=== PATIENT | female | born 1945 | race Caucasian/White ===

== ENCOUNTER 2024-02-13 08:58 | Emergency (ER) | payer MEDICARE, BC ==
[2024-02-13] MEDS ORDERED: DEXAMETHASONE SOD PHOSPHATE 10 MG/ML 1 ML VIAL ONE (09:45)
[2024-02-13] MEDS ORDERED: KETOROLAC 15 MG/ML 1 ML VIAL ONE (09:45)
[2024-02-13] MEDS ORDERED: LIDOCAINE 4% PATCH TOPICAL ONE (09:45)
[2024-02-13] MEDS ORDERED: MORPHINE SULFATE 4 MG/ML SYRINGE ONE (09:45)
[2024-02-13] MEDS ORDERED: ORPHENADRINE 30 MG/ML 2 ML VIAL ONE (09:45)
== END 2024-02-13 12:00 | disposition home or self-care (01) ==
LOC: EC 08:58
CPT/HCPCS: 96374; 96375; 99283

== ENCOUNTER 2024-07-02 16:39 | Observation (INO) | payer MEDICARE, BC ==
[2024-07-02 16:51] VITALS: TEMP 98.4
--- NOTE | 2024-07-02 17:26 | ED ---
General Adult HPI - General Chief complaint: Arrhythmia/Palpitations Stated complaint: afib Time Seen by Provider: 07/02/24 16:56 Source: patient, RN/MD Mode of arrival: ambulatory Limitations: no limitations - History of Present Illness Initial comments: Patient is a pleasant 79-year-old female presenting today for atrial fibrillation noted at urgent care. Patient had presented there for cough x approx 1 week.. She was noted to be in A-fib and RVR on arrival there. Cough is productive of whitish sputum. She denies fevers, chills, lightheadednes, dizziness, palpitations, chest pain, LE swelling, hemoptysis, nausea, vomiting, abdominal pain, diarrhea, hematochezia or melena, dysuria, or urinary frequency. Was once told by her doctor that she had an irreguclar heart beat but has never been diagnosed w/ a fib. Is not on blood thinners. No hx ACS. Is a nonsmoker. - Related Data Home Medications Medication Instructions Recorded Confirmed Benazepril/Hydrochlorothiazide 1 tab PO DAILY 07/02/24 07/02/24 [Benazepril-Hctz 20-12.5 mg Tab] Metoprolol Succinate (ER) [Toprol 50 mg PO DAILY 07/02/24 07/02/24 Xl] Allergies Allergy/AdvReac Type Severity Reaction Status Date / Time Penicillins Allergy Unknown Verified 07/02/24 18:43 Childhood Review of Systems ROS Statement: Those systems with pertinent positive or pertinent negative responses have been documented in the HPI. ROS Other: All systems not noted in ROS Statement are negative. Past Medical History Past Medical History: Hypertension Smoking Status: Never smoker Past Alcohol Use History: None Reported Past Drug Use History: None Reported General Exam - General Exam Comments Initial Comments: PE: CONSTITUTIONAL: No apparent distress, well appearing SKIN: Warm, dry, no jaundice, hives or petechiae EYES: Pupils are equally round, extraocular movements intact without nystagmus, clear conjunctiva, non-icteric sclera HENT: Normocephalic, atraumatic, moist mucus membranes, oropharynx clear without exudates NECK: , Full range of motion, normal appearance PULMONARY: Wheezes and rhonchi in the bilateral mid and lower lung blanco, no rales, normal excursion, no accessory muscle use no stridor r CARDIOVASCULAR: Irregularly irregular rhythm with tachycardia, exam limited by patient's heart rate, normal S1-S2 without murmurs, no lower extremity edema, 2+ radial pulse palpated GASTROINTESTINAL: Soft, active bowel sounds throughout, non-tender, non- distended, no palpable masses, no rebound or guarding. No hepatosplenomegaly GENITOURINARY: MUSCULOSKELETAL: Extremities have no gross deformity, no edema, redness, or swelling. No calf swelling NEUROLOGIC:_a/o x 3, GCS 15, normal mentation and speech. Moves all extremities x 4 without motor or sensory deficit PSYCHIATRIC:_normal mood and affect, thought process is clear and linear Limitations: no limitations Course Vital Signs 07/02/24 07/02/24 07/02/24 16:47 18:04 19:35 Temperature 98.4 F Pulse Rate 105 H 122 H 117 H Respiratory 20 20 16 Rate Blood Pressure 160/89 137/115 122/92 O2 Sat by Pulse 98 97 96 Oximetry 07/02/24 07/02/24 07/02/24 19:58 20:17 20:25 Temperature Pulse Rate 121 H 112 H 116 H Respiratory 18 Rate Blood Pressure 159/99 O2 Sat by Pulse 97 Oximetry 07/02/24 07/02/24 21:00 21:58 Temperature Pulse Rate 128 H 116 H Respiratory 18 18 Rate Blood Pressure 149/106 155/114 O2 Sat by Pulse 98 96 Oximetry EKG Findings - EKG Comments: EKG Findings:: Atrial fibrillation with RVR, rate 132 bpm, QRS complex duration 79 ms, QT/QTc 94/372, normal axis, T wave enlargement in lead to [address] elevations or reciprocal depressions Medical Decision Making - Medical Decision Making Was pt. sent in by a medical professional or institution (, PA, FORECLOSURE HOME INSPECTOR, urgent care, hospital, or halfway...) When possible be specific @ -Sent in by [facility] Did you speak to anyone other than the patient for history (EMS, parent, family, police, friend...)? What history was obtained from this source @ -No Did you review nursing and triage notes (agree or disagree)? Why? @ -I reviewed and agree with nursing and triage notes Were old charts reviewed (outside hosp., previous admission, EMS record, old EKG, old radiological studies, urgent care reports/EKG's, halfway records)? Report findings @Medical records reviewed, reviewed EKG sent in with patient from local urgent care which showed patient was in A-fib with RVR Differential Diagnosis (chest pain, altered mental status, abdominal pain women, abdominal pain men, vaginal bleeding, weakness, fever, dyspnea, syncope, heada gail, dizziness, GI bleed, back pain, seizure, CVA, palpatations, mental health, musculoskeletal)? Differential diagnosis remains broad however top considerations include Ventricular arrhythmias, atrial arrhythmias, myocardial infarction, anemia, thyrotoxicosis, electrolyte imbalance, hypokalemia, pulmonary disease, drugs, alcohol, anxiety, stress.... This is not meant to be an all-inclusive list. EKG interpreted by me (3pts min.). @ -As above X-rays interpreted by me (1pt min.). @ -No cardiomegaly consolidations or pleural effusions CT interpreted by me (1pt min.). @ -None done U/S interpreted by me (1pt. min.). @ -None done What testing was considered but not performed or refused? (CT, X-rays, U/S, labs)? Why? @ -None What meds were considered but not given or refused? Why? @ -None Did you discuss the management of the patient with other professionals (professionals i.e. , PA, FORECLOSURE HOME INSPECTOR, lab, RT, psych nurse, social organization professor, coke drawer hand, teacher, welfare officer, case coordinator)? Give summary @ -No Was smoking cessation discussed for >3mins.? @ -No Was critical care preformed (if so, how long)? @ -Yes, 45 minutes Were there social determinants of health that impacted care today? How? (Homele ssness, low income, unemployed, alcoholism, drug addiction, transportation, low edu. Level, literacy, decrease access to med. care, detention, rehab)? @ -No Was there de-escalation of care discussed even if they declined (Discuss DNR or withdrawal of care, Hospice)? @ -No What co-morbidities impacted this encounter? (DM, HTN, Smoking, COPD, CAD, Cancer, CVA, ARF, Chemo, Hep., AIDS, mental health diagnosis, sleep apnea, morbid obesity)? @ -None Was patient admitted / discharged? Hospital course, mention meds given and route, prescriptions, significant lab abnormalities, going to OR and other pertinent info. @ -Admission-this is a pleasant 79-year-old female presenting today after being found to be in A-fib with RVR at a local urgent care where she had presented for coughing. Patient well-appearing and in no acute distress on assessment. Does have rhonchi and wheezes in the bilateral mid and lower lung blanco, tachycardia and irregularly irregular rhythm on cardiac exam. Will start by controlling patient's heart rate with Cardizem, once rate is controlled will give DuoNeb and steroids, as these are likely to cause tachycardia as well. As it is unclear how long patient has been in A-fib for, heparin will be started as well. Patient agreeable with plan. Labs and imaging reviewed. Grossly within normal limits. Abnormal values not concerning for acute pathology related to presenting complaint. No focal consolidations on chest x-ray. Patient's pulmonary exam consistent with acute bronchitis. And reassessment after 20 mg Cardizem bolus rate is controlled between 80s and 110. DuoNeb and steroids provided which did cause patient become somewhat more tachycardic with heart rates 100-120. Cardizem gtt ongoing. Discussed with patient plan for admission. Case presented to Dr. Chand, who kindly accepted patient for admission. Undiagnosed new problem with uncertain prognosis? @ -No Drug Therapy requiring intensive monitoring for toxicity (Heparin, Nitro, Insulin, Cardizem)? @ -Cardizem, heparin Were any procedures done? @ -No Diagnosis/symptom? @A-fib with RVR, acute bronchitis Acute, or Chronic, or Acute on Chronic? Acute Uncomplicated (without systemic symptoms) or Complicated (systemic symptoms)? Complicated Side effects of treatment? @ -No Exacerbation, Progression, or Severe Exacerbation? @ -No Poses a threat to life or bodily function? How? (Chest pain, USA, ID, pneumonia, PE, COPD, DKA, ARF, appy, cholecystitis, CVA, Diverticulitis, Homicidal, Suicidal, threat to staff... and all critical care pts) Yes - Lab Data Result diagrams: 07/02/24 17:38 07/02/24 17:38 Lab Results 07/02/24 07/02/24 07/02/24 Range/Units 17:38 17:38 17:38 WBC 5.2 (3.8-10.6) k/uL RBC 4.58 (3.80-5.40) m/uL Hgb 14.0 (11.4-16.0) gm/dL Hct 41.3 (34.0-46.0) % MCV 90.1 (80.0-100.0) fL MCH 30.6 (25.0-35.0) pg MCHC 34.0 (31.0-37.0) g/dL RDW 13.1 (11.5-15.5) % Plt Count 236 (150-450) k/uL MPV 7.2 Neutrophils % (Manual) 36 % Lymphocytes % (Manual) 57 % Monocytes % (Manual) 5 % Eosinophils % (Manual) 2 % Neutrophils # (Manual) 1.87 (1.3-7.7) k/uL Lymphocytes # (Manual) 2.96 (1.0-4.8) k/uL Monocytes # (Manual) 0.26 (0-1.0) k/uL Eosinophils # (Manual) 0.10 (0-0.7) k/uL Nucleated RBCs 0 (0-0) /100 WBC Manual Slide Review Performed RBC Morphology Normal PT 10.1 (10.0-12.5) sec INR 0.9 (<1.2) APTT 22.2 (22.0-30.0) sec Sodium 139 (137-145) mmol/L Potassium 3.7 (3.5-5.1) mmol/L Chloride 106 (98-107) mmol/L Carbon Dioxide 28 (22-30) mmol/L Anion Gap 5 mmol/L BUN 17 (7-17) mg/dL Creatinine 0.83 (0.52-1.04) mg/dL Est GFR (CKD-EPI)AfAm 79 (>60 ml/min/1.73 sqM) Est GFR (CKD-EPI)NonAf 68 (>60 ml/min/1.73 sqM) Glucose 113 H (74-99) mg/dL Calcium 9.0 (8.4-10.2) mg/dL Magnesium 1.9 (1.6-2.3) mg/dL Total Bilirubin 0.1 L (0.2-1.3) mg/dL AST 21 (14-36) U/L ALT 13 (4-34) U/L Alkaline Phosphatase 78 (38-126) U/L Troponin I (0.000-0.034) ng/mL Total Protein 6.3 (6.3-8.2) g/dL Albumin 3.9 (3.5-5.0) g/dL TSH 1.580 (0.465-4.680) mIU/L 07/02/24 Range/Units 17:38 WBC (3.8-10.6) k/uL RBC (3.80-5.40) m/uL Hgb (11.4-16.0) gm/dL Hct (34.0-46.0) % MCV (80.0-100.0) fL MCH (25.0-35.0) pg MCHC (31.0-37.0) g/dL RDW (11.5-15.5) % Plt Count (150-450) k/uL MPV Neutrophils % (Manual) % Lymphocytes % (Manual) % Monocytes % (Manual) % Eosinophils % (Manual) % Neutrophils # (Manual) (1.3-7.7) k/uL Lymphocytes # (Manual) (1.0-4.8) k/uL Monocytes # (Manual) (0-1.0) k/uL Eosinophils # (Manual) (0-0.7) k/uL Nucleated RBCs (0-0) /100 WBC Manual Slide Review RBC Morphology PT (10.0-12.5) sec INR (<1.2) APTT (22.0-30.0) sec Sodium (137-145) mmol/L Potassium (3.5-5.1) mmol/L Chloride (98-107) mmol/L Carbon Dioxide (22-30) mmol/L Anion Gap mmol/L BUN (7-17) mg/dL Creatinine (0.52-1.04) mg/dL Est GFR (CKD-EPI)AfAm (>60 ml/min/1.73 sqM) Est GFR (CKD-EPI)NonAf (>60 ml/min/1.73 sqM) Glucose (74-99) mg/dL Calcium (8.4-10.2) mg/dL Magnesium (1.6-2.3) mg/dL Total Bilirubin (0.2-1.3) mg/dL AST (14-36) U/L ALT (4-34) U/L Alkaline Phosphatase (38-126) U/L Troponin I <0.012 (0.000-0.034) ng/mL Total Protein (6.3-8.2) g/dL Albumin (3.5-5.0) g/dL TSH (0.465-4.680) mIU/L Disposition Clinical Impression: Atrial fibrillation with rapid ventricular response, Acute bronchitis Disposition: ADMITTED IP TO THIS HOSP Condition: Good
[2024-07-02] MEDS ORDERED: DILTIAZEM 125 MG in SODIUM CHLORIDE 0.9% 100 ML IV SCH (17:30)
[2024-07-02] MEDS: SODIUM CHLORIDE 0.9% 1,000 ML IV STA (18:05)
[2024-07-02 18:07] LABS: ALT 13 U/L (4-34); AST 21 U/L (14-36); African American GFR (CKD) 79 (>60 ml/min/1.73 sqM); Albumin 3.9 g/dL (3.5-5.0); Alkaline Phosphatase 78 U/L (38-126); Anion Gap 5 mmol/L; Blood Urea Nitrogen 17 mg/dL (7-17); Carbon Dioxide 28 mmol/L (22-30); Chloride 106 mmol/L (98-107); Glucose 113 mg/dL (74-99); Magnesium 1.9 mg/dL (1.6-2.3); Non-African American GFR(CKD) 68 (>60 ml/min/1.73 sqM); Potassium 3.7 mmol/L (3.5-5.1); Sodium 139 mmol/L (137-145); Total Bilirubin 0.1 mg/dL (0.2-1.3); Total Protein 6.3 g/dL (6.3-8.2)
[2024-07-02] MEDS: DILTIAZEM DRIP BOLUS FROM BAG 1 MG SOLN IV ONE (18:08)
[2024-07-02] MEDS: HEPARIN SODIUM 1,000 UN/ML (10ML VL) IV ONE (18:22)
[2024-07-02] MEDS: HEPARIN SOD,PORK IN 0.45% NACL 25,000 UNIT in 0.45% NACL 1 250ML.BAG IV SCH (18:22)
[2024-07-02 18:23] LABS: INR 0.9 (<1.2); Partial Thromboplastin Time 22.2 sec (22.0-30.0); Prothrombin Time 10.1 sec (10.0-12.5)
[2024-07-02] MEDS: DILTIAZEM 125 MG in SODIUM CHLORIDE 0.9% 100 ML IV SCH (18:26)
[2024-07-02 18:40] LABS: HCT 41.3 % (34.0-46.0); MCH 30.6 pg (25.0-35.0); MCV 90.1 fL (80.0-100.0); Mean Platelet Volume 7.2; Platelet Count 236 k/uL (150-450); RBC 4.58 m/uL (3.80-5.40); RDW 13.1 % (11.5-15.5); WBC 5.2 k/uL (3.8-10.6)
[2024-07-02 19:24] LABS: Lymphocytes # (M) 2.96 k/uL (1.0-4.8); Monocytes # (M) 0.26 k/uL (0-1.0); Neutrophils # (M) 1.87 k/uL (1.3-7.7); Neutrophils % (M) 36 %; Nucleated Red Blood Cells 0 /100 WBC (0-0); RBC Morphology Normal; Total Cells Counted 100
--- NOTE | 2024-07-02 19:27 | XR ---
EXAMINATION TYPE: XR chest 2V DATE OF EXAM: 07/02/2024 7:22 PM COMPARISON: None CLINICAL INDICATION: Female, 79 years old with history of dysrhythmia; PH TECHNIQUE: XR chest 2V Frontal and lateral views of the chest. FINDINGS: Lungs/Pleura: There is no evidence of pleural effusion, focal consolidation, or pneumothorax. Pulmonary vascularity: Unremarkable. Heart/mediastinum: Cardiomediastinal silhouette is unremarkable. Musculoskeletal: No acute osseous pathology. IMPRESSION: No acute cardiopulmonary disease/process. [facility], , 07/02/2024 7:24 PM
[2024-07-02] MEDS: predniSONE 20 MG TAB PO STA (20:01)
[2024-07-02] MEDS: IPRATROPIUM-ALBUTEROL 3 ML NEB INHALATION STA (20:17)
[2024-07-02] MEDS ORDERED: NALOXONE 0.4 MG/ML 1 ML VIAL IV PRN (22:23)
[2024-07-02] MEDS ORDERED: CALCIUM CARBONATE 500 MG CHEWABLE PO PRN (22:23)
[2024-07-02] MEDS ORDERED: ACETAMINOPHEN TAB 325 MG TAB PO PRN (22:23)
[2024-07-02] MEDS ORDERED: MAG HYDROX/AL HYDROX/SIMETH 30 ML CUP PO PRN (22:23)
[2024-07-02] MEDS ORDERED: traMADol 50 MG TAB PO PRN (22:23)
[2024-07-03 00:25] LABS: Prothrombin Time 11.3 sec (10.0-12.5)
--- NOTE | 2024-07-03 01:37 | P.HPIM ---
History of Present Illness H&P Date: 07/02/24 Chief Complaint: Arrhythmia/palpitations Patient is a 79-year-old female with hypertension presented to the emergency department with arrhythmia/palpitations. Patient has been having cough for the past week and went to urgent care earlier today. She was found to be in atrial fibrillation at the clinic and was sent over to the ED for further evaluation. Patient denies any prior history of atrial fibrillation. No heart conditions or stents placed in the heart in the past. No history of diabetes or COPD. Has been adherent to her home medications. Does report that her cough is better tonight. Denies other complaints at this time. Denies chest pain, shortness of breath, lightheadedness, dizziness, loss of consciousness/passing out, fever, chills, sore throat, runny nose, nausea/vomiting, hematochezia or melena. Patient denies recent travel history, denies any sick contacts. ED documentation reviewed. In the ED patient was treated with prednisone 40 mg p.o. x 1, DuoNeb 3 mL x 1, diltiazem 125 mg IV, heparin IV x 1, a bolus of normal saline, Cardizem drip bolus IV x 1 Vitals on admission temperature 98.4, heart rate 121, respiratory rate 18, blood pressure 159/99, O2 sat 97% on room air EKG independently interpreted as atrial fibrillation with rapid ventricular response with ventricular rate of 132 bpm, QTc interval 372 ms, low QRS voltage in extremity leads possible anterior myocardial infarction, probably old CXR shows no acute cardiopulmonary disease/process Labs on admission show WBC 5.2, hemoglobin 14, hematocrit 41.3, platelet 236, PT 10.1, PTT 22.2, INR 0.9, sodium 139, potassium 3.7, chloride 106, carbon dioxide 28, BUN 17, creatinine 0.83, glucose 113, bilirubin 0.1, troponin less than 0.012, TSH 1.58 Review of systems: Pertinent positives and negatives as discussed in HPI, a complete review of systems was performed and all other systems are negative. PMH: Hypertension PSH: None reported FMH: No pertinent family history Allergies: Penicillins Social history: Tobacco: Never smoker Alcohol: None reported Recreational drugs: None reported Travel: No travel history Sick contacts: Recently had pneumonia about a month ago Physical examination: Vital signs reviewed General: nontoxic, no distress, appears at stated age Derm: warm, dry, intact Head: atraumatic, normocephalic, symmetric Eyes: EOMI, anicteric sclera Mouth: no lip lesion, mucus membranes moist Cardiovascular: S1 S2 reg, no murmur Lungs: CTA bilateral, no rhonchi, no rales, no accessory muscle use Abdominal: soft, non-tender to palpation Extremities: No cyanosis, clubbing, or pedal edema. Neuro: Alert, Oriented to time, person, place, Gross neurological examination did not reveal any focal deficits. Cranial nerves II to XII grossly intact. Bilateral upper and lower extremity muscle strength intact 5 out of 5 and sensation intact. Psych: well appearing, appropriate affect Assessment/Plan: 79-year-old female with hypertension presented to the emergency department with arrhythmia/palpitations. [facility] Active: #. New onset atrial fibrillation with rapid ventricular response Heart rate 121 EKG showed atrial fibrillation with rapid ventricular response with ventricular rate of 132 bpm, QTc interval 372 ms, low QRS voltage in extremity leads possible anterior myocardial infarction, probably old Continue cardiac monitoring Restart home metoprolol succinate Obtain D-dimer, if D-dimer is elevated consider CT angiography of chest Troponin has been less than 0.012 x 2 TSH 1.58 unremarkable Consult cardiology echocardiogram CHADSvasc = 4 will require anticoagulation await echo results #. Hyperglycemia Glucose 113 Accu-Cheks every 6 hours Chronic: #. Hypertension Restart home metoprolol succinate 50 mg daily Restart home benazepril/hydrochlorothiazide 20-12.5 mg 1 tablet daily F: No restrictions E: As needed N: Regular diet A: Ambulatory DVT prophylaxis: Lovenox 40 mg subcu daily The patient is admitted with an anticipated less than 2 midnight stay for evaluation of atrial fibrillation CODE STATUS: Full code Discussed with: Patient Anticipated discharge place: Home I have seen and evaluated the patient today. I Discussed the case with the resident and agree with the resident's findings I edited the assessment and plan as necessary as documented in the resident's note. Past Medical History Past Medical History: Hypertension Smoking Status: Never smoker Past Alcohol Use History: None Reported Past Drug Use History: None Reported Medications and Allergies Home Medications Medication Instructions Recorded Confirmed Type Benazepril/Hydrochlorothiazide 1 tab PO DAILY 07/02/24 07/02/24 History [Benazepril-Hctz 20-12.5 mg Tab] Metoprolol Succinate (ER) [Toprol 50 mg PO DAILY 07/02/24 07/02/24 History Xl] Allergies Allergy/AdvReac Type Severity Reaction Status Date / Time Penicillins Allergy Unknown Verified 07/02/24 18:43 Childhood Physical Exam Vitals: Vital Signs Temp Pulse Resp BP Pulse Ox 07/02/24 19:58 121 H 18 159/99 97 07/02/24 19:35 117 H 16 122/92 96 07/02/24 18:04 122 H 20 137/115 97 07/02/24 16:47 98.4 F 105 H 20 160/89 98 Intake and Output 07/02/24 07/02/24 07/02/24 06:59 14:59 22:59 Other: Weight 90.718 kg Results CBC & Chem 7: 07/02/24 17:38 07/02/24 17:38 Labs: Abnormal Lab Results - Last 24 Hours (Table) 07/02/24 Range/Units 17:38 Glucose 113 H (74-99) mg/dL Total Bilirubin 0.1 L (0.2-1.3) mg/dL
[2024-07-03] MEDS: HEPARIN SODIUM 1,000 UN/ML (10ML VL) IV PRN (04:12)
[2024-07-03] MEDS: LISINOPRIL-HCTZ 20-12.5 MG 1 EACH TAB PO SCH (08:38)
[2024-07-03] MEDS: FAMOTIDINE 20 MG TAB PO SCH (08:38)
[2024-07-03] MEDS: METOPROLOL SUCCINATE (ER) 50 MG TAB.ER.24H PO SCH (08:39)
[2024-07-03 08:40] VITALS: RESP 20
[2024-07-03 08:46] LABS: Glucose,Whole Blood 106 mg/dL (70-110)
--- NOTE | 2024-07-03 11:50 | P.PN ---
Subjective Progress Note Date: 07/03/24 Hospital Course: A 79-year-old female with PMH of hypertension who presented to the ED with pal pitation, cough that has been going on for the past week. She was seen in the clinic and was found to be in A-fib that she does not have prior history of, patient was sent to the ER. Her car started getting better after admission. Patient was given breathing treatment, started on IV Cardizem, heparin drip, cardiology consulted. EKG showed A-fib with RVR. Patient converted to sinus, Cardizem drip was stopped, heparin drip stopped, patient was started on Eliquis 5 mg twice daily, continued on home Toprol-XL 50 daily, lisinopril hydrochlorothiazide. TTE pending. Pertinent Imaging: Chest x-ray from admission, no acute cardiopulmonary process Subjective: Patient was seen and examined in the ER, she is feeling better, no palpitations, chest pain, discomfort, denies shortness of breath, cough is significantly better today. Pertinent positives and negatives as discussed above, a complete review of systems was performed and all other systems are negative. Vitals Signs Reviewed. General: [nontoxic], [no distress], [appears at stated age] Derm: [warm], [dry] Head: [atraumatic], [normocephalic], [symmetric] Eyes: [EOMI], [no lid lag], [anicteric sclera] Mouth: [no lip lesion], [mucus membranes moist] Cardiovascular: [S1S2 reg], [no murmur] Lungs: [CTA bilateral], [no rhonchi, no rales] , [no accessory muscle use] Abdominal: [soft], [ nontender to palpation], [no guarding], [no appreciable organomegaly] Ext: [no gross muscle atrophy], [no edema], [no contractures] Neuro: [ CN II-XI grossly intact], [no focal neuro deficits] Psych: [Alert], [oriented], [appropriate affect] Data Reviewed Today: Pertinent Labs: BG is controlled Assessment and Plan: New onset A-fib with RVR, currently in sinus Hypertension -TTE pending -Continue home Toprol XL, lisinopril hydrochlorothiazide -Started on Eliquis -Cardizem and heparin drip stopped -Cardiology following -TSH WNL -Continue telemetry Cough RSV positive -Patient is not hypoxic -No interventions -Age-appropriate vaccination recommended DVT ppx: Eliquis Anticipated discharge place: home Anticipated discharge time: 07/04 Objective - Vital Signs Vital signs: Vital Signs Temp 98.4 F 07/02/24 16:47 Pulse 60 07/03/24 10:38 Resp 20 07/03/24 10:38 BP 115/88 07/03/24 10:38 Pulse Ox 96 07/03/24 10:38 FiO2 Intake & Output 07/02/24 07/03/24 07/03/24 18:59 06:59 18:59 Intake Total 199.332 69.25 Balance 199.332 69.25 Weight 90.718 kg Intake: Intake, IV Titration 199.332 69.25 Amount Diltiazem 125 mg In 101.499 69.25 Sodium Chloride 0.9% 100 ml @ 5 MG/HR 5 mls/hr IV .Q24H [facility] Rx#:[id number] Heparin Sod,Pork in 0.45% 97.833 NaCl 25,000 unit In 0.45 % NaCl 1 250ml.bag @ 11. 023 UNITS/KG/HR 10 mls/hr IV .Q24H [facility] Rx#: [id number] - Labs CBC & Chem 7: 07/02/24 17:38 07/02/24 17:38 Labs: Abnormal Lab Results - Last 24 Hours (Table) 07/02/24 07/03/24 07/03/24 Range/Units 17:38 00:57 02:14 APTT 35.8 H (22.0-30.0) sec D-Dimer (<0.60) mg/L FEU Glucose 113 H (74-99) mg/dL Total Bilirubin 0.1 L (0.2-1.3) mg/dL RSV (PCR) Detected A (Not Detectd) 07/03/24 07/03/24 Range/Units 07:45 07:45 APTT 61.1 H (22.0-30.0) sec D-Dimer 0.69 H (<0.60) mg/L FEU Glucose (74-99) mg/dL Total Bilirubin (0.2-1.3) mg/dL RSV (PCR) (Not Detectd)
[2024-07-03] MEDS: APIXABAN 5 MG TAB PO SCH (12:41)
--- NOTE | 2024-07-03 13:50 | P.CRDCN ---
History of Present Illness History of present illness: HISTORY OF PRESENT ILLNESS: This is a 79-year-old female with a past medical history significant for hypertension. 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 We have been asked to see the patient in consultation for afib. Patient examined at the bedside in the ER. Patient states she has been dealing with a cough recently for the past week. She has been taking Coricidin HBP on an outpatient basis. Patient had an EKG performed at the urgent care which revealed atrial fibrillation and she was sent to the emergency room for further evaluation. Patient was started on IV heparin and IV Cardizem. She has subsequently converted to sinus mechanism and is maintaining sinus mechanism at the time of examination. Patient denies any known history of atrial fibrillation. Patient denies any chest pain or pressure. She denies any shortness of breath. She denies any dizziness or ligh theadedness. Vital signs are stable. DIAGNOSTICS: - EKG reveals A-fib with RVR. Repeat EKG reveals sinus mechanism. - Chest xray negative for acute process - Laboratory data: WBC 5.2. Hemoglobin 14.0. Platelet count 236. Sodium 139. Potassium 3.7. BUN 17. Creatinine 0.83. Troponin negative x 3. TSH 1.580. - Current home cardiac medications include metoprolol succinate 50 mg daily and benazeprilhydrochlorothiazide 20-12.5 mg daily - No previous echocardiogram, stress test, or cardiac catheterization available in EMR for review REVIEW OF SYSTEMS: At the time of my exam: CONSTITUTIONAL: Denies fever or chills. HEENT: Denies blurred vision, vision changes, or eye pain. Denies hemoptysis CARDIOVASCULAR: Denies chest pain. Denies orthopnea. Denies PND. Denies palpitations RESPIRATORY: Denies shortness of breath. GASTROINTESTINAL: Denies abdominal pain. Denies nausea or vomiting. HEMATOLOGIC: Denies bleeding disorders. GENITOURINARY: Denies any blood in urine. SKIN: Denies pruitis. Denies rash. PHYSICAL EXAM: VITAL SIGNS: Reviewed. GENERAL: Well-developed in no acute distress. HEENT: Head is normocephalic. Pupils are equal, round. Sclerae anicteric. Mucous membranes of the mouth are moist. Neck supple. No JVD or thyromegaly LUNGS: Respirations even and unlabored. Lungs essentially clear to auscultation bilaterally. HEART: Regular rate and rhythm. S1 and S2 heard. ABDOMEN: Soft. Nondistended. Nontender. EXTREMITIES: Normal range of motion. No clubbing or cyanosis. Peripheral pulses intact. No lower extremity edema NEUROLOGIC: Awake and alert. Oriented x 3. ASSESSMENT: Acute RSV infection New onset paroxysmal atrial fibrillation with RVR, currently maintaining sinus mechanism Hypertension Obesity: BMI 36.6 PLAN: Discontinue IV heparin Begin Eliquis 5 mg twice a day Discontinue IV Cardizem Continue current dose of metoprolol succinate 50 mg daily Will plan for outpatient echocardiogram and stress test Patient may be discharged home today from a cardiac standpoint Patient to follow-up in the office with Dr. Monroy in 1 week Nurse practitioner note has been reviewed by physician. Signing provider agrees with the documented findings, assessment, and plan of care documented by [employer] SECRETARY as a scribe. Past Medical History Past Medical History: Hypertension Smoking Status: Never smoker Past Alcohol Use History: None Reported Past Drug Use History: None Reported Medications and Allergies Home Medications Medication Instructions Recorded Confirmed Type Benazepril/Hydrochlorothiazide 1 tab PO DAILY 07/02/24 07/02/24 History [Benazepril-Hctz 20-12.5 mg Tab] Metoprolol Succinate (ER) [Toprol 50 mg PO DAILY 07/02/24 07/02/24 History Xl] Allergies Allergy/AdvReac Type Severity Reaction Status Date / Time Penicillins Allergy Unknown Verified 07/02/24 18:43 Childhood Physical Exam Vitals: Vital Signs Temp Pulse Resp BP Pulse Ox 07/03/24 06:58 90 07/03/24 05:55 115 H 18 129/89 95 07/03/24 03:42 115 H 18 121/89 94 L 07/03/24 00:52 105 H 18 137/96 96 07/02/24 21:58 116 H 18 155/114 96 07/02/24 21:00 128 H 18 149/106 98 07/02/24 20:25 116 H 07/02/24 20:17 112 H 07/02/24 19:58 121 H 18 159/99 97 07/02/24 19:35 117 H 16 122/92 96 07/02/24 18:04 122 H 20 137/115 97 07/02/24 16:47 98.4 F 105 H 20 160/89 98 Intake and Output 07/02/24 07/03/24 07/03/24 22:59 06:59 14:59 Intake Total 833 185.499 Balance 3 185.499 Intake: Intake, IV Titration .3 185.499 Amount Diltiazem 125 mg In 87.666 Sodium Chloride 0.9% 100 ml @ 5 MG/HR 5 mls/hr IV .Q24H [facility] Rx#:[id number] Heparin Sod,Pork in 0.45% 97.833 NaCl 25,000 unit In 0.45 % NaCl 1 250ml.bag @ 11. 023 UNITS/KG/HR 10 mls/hr IV .Q24H [facility] Rx#: [id number] Other: Weight 90.718 kg Results 07/02/24 17:38 07/02/24 17:38 Cardiac Enzymes 07/02/24 07/02/24 07/02/24 Range/Units 17:38 17:38 23:55 AST 21 (14-36) U/L Troponin I <0.012 <0.012 (0.000-0.034) ng/mL 07/03/24 Range/Units 02:25 AST (14-36) U/L Troponin I <0.012 (0.000-0.034) ng/mL Coagulation 07/02/24 07/02/24 07/03/24 Range/Units 17:38 23:55 02:14 PT 10.1 11.3 (10.0-12.5) sec APTT 22.2 35.8 H (22.0-30.0) sec CBC 07/02/24 Range/Units 17:38 WBC 5.2 (3.8-10.6) k/uL RBC 4.58 (3.80-5.40) m/uL Hgb 14.0 (11.4-16.0) gm/dL Hct 41.3 (34.0-46.0) % Plt Count 236 (150-450) k/uL Comprehensive Metabolic Panel 07/02/24 Range/Units 17:38 Sodium 139 (137-145) mmol/L Potassium 3.7 (3.5-5.1) mmol/L Chloride 106 (98-107) mmol/L Carbon Dioxide 28 (22-30) mmol/L BUN 17 (7-17) mg/dL Creatinine 0.83 (0.52-1.04) mg/dL Glucose 113 H (74-99) mg/dL Calcium 9.0 (8.4-10.2) mg/dL AST 21 (14-36) U/L ALT 13 (4-34) U/L Alkaline Phosphatase 78 (38-126) U/L Total Protein 6.3 (6.3-8.2) g/dL Albumin 3.9 (3.5-5.0) g/dL Current Medications Generic Name Dose Route Start Last Admin Trade Name Freq PRN Reason Stop Dose Admin Acetaminophen 650 mg 07/02/24 22:23 Acetaminophen Tab 325 Mg Tab PO Q6HR PRN Mild Pain or Fever > 100.5 Al Hydroxide/Mg Hydroxide 15 ml 07/02/24 22:23 Mag Hydrox/Al Hydrox/Simeth 30 Ml Cup PO Q6HR PRN Indigestion Calcium Carbonate/Glycine 1,000 mg 07/02/24 22:23 Calcium Carbonate 500 Mg Chewable PO Q4HR PRN Dyspepsia Famotidine 20 mg 07/03/24 09:00 Famotidine 20 Mg Tab PO DAILY [facility] Lisinopril/HCTZ 1 each 07/03/24 09:00 Lisinopril-Hctz 20-12.5 Mg 1 Each Tab PO DAILY [facility] Heparin Sodium (Porcine) 0 unit 07/03/24 04:04 07/03/24 04:12 Heparin Sodium 1,000 Un/Ml (10ml Vl) IV 2,267.5 unit PER PROTOCOL PRN Administration Low PTT Protocol Heparin Sodium/Sodium Chloride 250 mls @ 10 mls/hr 07/02/24 17:30 07/03/24 04:09 25,000 unit/ Sodium Chloride IV 13.023 units/kg/hr .Q24H [facility] 11.814 mls/hr Titration Protocol 11.023 UNITS/KG/HR Diltiazem HCl 125 mg/ Sodium 125 mls @ 5 mls/hr 07/02/24 18:30 07/03/24 05:58 Chloride IV 15 mg/hr .Q24H [facility] 15 mls/hr Titration Protocol 5 MG/HR Metoprolol Succinate 50 mg 07/03/24 09:00 Metoprolol Succinate (Er) 50 Mg Tab.Er.24h PO DAILY [facility] Naloxone HCl 0.2 mg 07/02/24 22:23 Naloxone 0.4 Mg/Ml 1 Ml Vial IV Q2M PRN Opioid Reversal Tramadol HCl 50 mg 07/02/24 22:23 Tramadol 50 Mg Tab PO Q6H PRN Moderate Pain (Scale 4 to 6) Intake and Output 07/02/24 07/03/24 07/03/24 22:59 06:59 14:59 Intake Total 13.833 185.499 Balance 13.833 185.499 Intake: Intake, IV Titration 13.833 185.499 Amount Diltiazem 125 mg In 13.833 87.666 Sodium Chloride 0.9% 100 ml @ 5 MG/HR 5 mls/hr IV .Q24H [facility] Rx#:[id number] Heparin Sod,Pork in 0.45% 97.833 NaCl 25,000 unit In 0.45 % NaCl 1 250ml.bag @ 11. 023 UNITS/KG/HR 10 mls/hr IV .Q24H [facility] Rx#: [id number] Other: Weight 90.718 kg 07/02/24 17:38 07/02/24 17:38
--- NOTE | 2024-07-03 14:14 | P.DS ---
Providers Date of admission: 07/02/24 22:25 Attending physician: Sumit Chand MD Consults: 07/02/24 22:23 Consult Physician Routine Consulting Provider: Nicolas Ladd Consult Reason/Comments: Atrial fibrillation Do you want consulting provider notified?: Yes, Notify in am Primary care physician: [facility] Course: Discharge Diagnosis: New onset A-fib with RVR, currently in sinus [facility] Course: A 79-year-old female with PMH of hypertension who presented to the ED with palpitation, cough that has been going on for the past week. She was seen in the clinic and was found to be in A-fib that she does not have prior history of, patient was sent to the ER. Her car started getting better after admission. Patient was given breathing treatment, started on IV Cardizem, heparin drip, cardiology consulted. EKG showed A-fib with RVR. Patient converted to sinus, Cardizem drip was stopped, heparin drip stopped, patient was started on Eliquis 5 mg twice daily, continued on home Toprol-XL 50 daily, lisinopril hydrochlorothiazide. Patient was cleared for discharge by cardiology, patient to follow-up with cardiology in 1 week to complete outpatient TTE. Patient seen and examined at bedside Vital signs reviewed and stable. General: [nontoxic], [no distress], [appears at stated age] Derm: [warm], [dry] Head: [atraumatic], [normocephalic], [symmetric] Eyes: [EOMI], [no lid lag], [anicteric sclera] Mouth: [no lip lesion], [mucus membranes moist] Cardiovascular: [S1S2 reg], [no murmur] Lungs: [CTA bilateral], [no rhonchi, no rales] , [no accessory muscle use] Abdominal: [soft], [ nontender to palpation], [no guarding], [no appreciable organomegaly] Ext: [no gross muscle atrophy], [no edema], [no contractures] Neuro: [ CN II-XI grossly intact], [no focal neuro deficits] Psych: [Alert], [oriented], [appropriate affect] A total of 40 minutes of time were spent preparing this complex discharge summary. Patient was discharged on 07/03/24 Patient Condition at Discharge: Stable Plan - Discharge Summary New Discharge Prescriptions: New Apixaban [Eliquis] 5 mg PO BID 90 Days #180 tab Continue Metoprolol Succinate (ER) [Toprol XL] 50 mg PO DAILY Benazepril/Hydrochlorothiazide [Benazepril-Hctz 20-12.5 mg Tab] 1 tab PO DAILY Discharge Medication List Benazepril/Hydrochlorothiazide [Benazepril-Hctz 20-12.5 mg Tab] 1 tab PO DAILY 07/02/24 [History] Metoprolol Succinate (ER) [Toprol XL] 50 mg PO DAILY 07/02/24 [History] Apixaban [Eliquis] 5 mg PO BID 90 Days #180 tab 07/03/24 [Rx] Follow up Appointment(s)/Referral(s): Chevy Monroy MD [Medical Doctor] - 1 Week Cate Winn MD [Primary Care Provider] - 1-2 days Patient Instructions/Handouts: Apixaban (By mouth), A-fib (Atrial Fibrillation) (DC) Activity/Diet/Wound Care/Special Instructions: Please, follow up with cardiology and PCP
[2024-07-03 15:03] VITALS: BP 130/98; PULSE 84
== END 2024-07-03 15:05 | disposition home or self-care (01) ==
LOC: EC 16:39 → 3SCARD 22:25
PROVIDERS: ADMIT Internal Medicine; ATTEND Internal Medicine
DX: I48.0 Paroxysmal atrial fibrillation (principal); J20.9 Acute bronchitis, unspecified; B97.4 Respiratory syncytial virus as the cause of diseases classified elsewhere; R73.9 Hyperglycemia, unspecified; I10 Essential (primary) hypertension; E66.9 Obesity, unspecified; Z68.36 Body mass index [BMI] 36.0-36.9, adult; Z88.0 Allergy status to penicillin; Z87.01 Personal history of pneumonia (recurrent)
CPT/HCPCS: 96368; 96361; 96365; 96366 ×2; 96367; 96372; 99285; 36415; 94640; 93005; 85379; 80053; 83735; 84443; 84484 ×2; 85025; 85610; 85730 ×2; 87636; 71046; G0378 ×2; J1644 ×3; J7512